=== PATIENT | male | born 1960 | race Caucasian/White ===

== ENCOUNTER 2020-10-13 13:54 | Outpatient (CLI) | payer SELFPAY ==
[2020-10-13 14:48] LABS: #Basophils 0.1 10x3/uL (0.0-0.2); #Eosinphils 0.2 10x3/uL (0.0-0.5); #Monocytes 0.5 10x3/uL (0.0-1.1); #Neutrophils 6.7 10x3/uL (1.5-8.4); %Basophils 0.7 % (0.0-2.0); %Eosinophils 2.3 % (0.0-6.0); %Lymphocytes 17.8 % (18.0-47.0); %Monocytes 5.7 % (0.0-10.0); Hemoglobin 14.3 g/dL (14.0-18.0); Mean Corpuscular HGB CONC 34.4 G/DL (32.0-36.0); Mean Corpuscular Hemoglobin 30.9 PG (27.0-33.0); Mean Corpuscular Volume 89.8 fl (80.0-100.0); Mean Platelet Volume 9.2 fl (7.4-10.4); Platelet Count 218 10x3/uL (130-400); RBC Distribution Width 12.7 % (11.5-14.5); Red Blood Cell (RBC) Count 4.63 10x6/uL (4.40-5.80); White Blood Cell (WBC) Count 9.2 10x3/uL (4.5-11.0)
[2020-10-13 15:17] LABS: Anion Gap 13 mmol/L (10-20); BUN (Urea Nitrogen) 15 mg/dL (8.4-25.7); Calc. Creatinine Clearance 0 mL/min (70-130); Carbon Dioxide 28 mmol/L (23-31); Chloride 105 mmol/L (98-107); Potassium 4.1 mmol/L (3.5-5.1); Sodium 142 mmol/L (136-145)
[2020-10-13 15:18] LABS: ALT (SGPT) 18 U/L (8-55); AST (SGOT) 24 U/L (5-34); Albumin 4.5 g/dL (3.4-4.8); Alkaline Phosphatase 84 U/L (40-110); Bilirubin, Total 1.1 mg/dL (0.2-1.2); Calcium 9.6 mg/dL (7.8-10.44); Globulin 2.6 g/dL (2.4-3.5); Glucose 93 mg/dL (80-115); Protein, Total 7.1 g/dL (5.8-8.1)
[2020-10-14 02:23] LABS: SARS-CoV-2 MS2 Positive; SARS-CoV-2 N Gene Negative; SARS-CoV-2 S Gene Negative; SARS-CoV-2 by NAA Not Detected (NotDetected); SARS-CoV-2 orf1ab Negative
== END 2020-10-13 13:55 | disposition home or self-care (01) ==
LOC: LABBT 13:54
PROVIDERS: ATTEND Internal Medicine Cardiovascular Disease
DX: Z01.812 Encounter for preprocedural laboratory examination (principal); R94.39 Abnormal result of other cardiovascular function study; Z20.822 Contact with and (suspected) exposure to COVID-19
CPT/HCPCS: 80053; 85025; 87635; U0003

== ENCOUNTER 2020-10-18 06:02 | Day surgery (SDC) | payer OTHER ==
[2020-10-14 10:40] VITALS: BMI 30.4
[2020-10-18] MEDS ORDERED: Heparin 10,000 UNITS/ 10 ML VIAL ONE (06:46)
[2020-10-18] MEDS ORDERED: Fentanyl 100 MCG/2 ML VIAL ONE (07:01)
[2020-10-18] MEDS ORDERED: Midazolam HCl 2 mg/2 ml Vial ONE (07:02)
[2020-10-18] MEDS ORDERED: Bivalirudin 250 MG VIAL ONE (07:36)
[2020-10-18] MEDS ORDERED: Clopidogrel Bisulfate 300 MG TAB ONE (07:48)
[2020-10-18] MEDS ORDERED: Adenosine 6 MG/2 ML VIAL ONE (08:05)
[2020-10-18] MEDS ORDERED: Acetaminophen 325 MG TAB ONE (08:35)
[2020-10-18] MEDS ORDERED: Aspirin Chewable 81 MG TAB ONE (14:17)
[2020-10-18] MEDS ORDERED: Aspirin 81 mg Enteric Coated Tablet ONE (14:18)
[2020-10-18] MEDS ORDERED: Carvedilol 6.25 MG TAB ONE (14:19)
[2020-10-18] MEDS ORDERED: Lisinopril 2.5 MG TAB ONE (14:19)
[2020-10-18] MEDS ORDERED: Iopamidol 370 76% 100 ML VIAL ONE (14:29)
[2020-10-18] MEDS ORDERED: Iopamidol 370 76% 50 ML VIAL FS ONE (14:29)
[2020-10-18] MEDS ORDERED: hydrALAZINE 20 MG/ML VIAL ONE (18:46)
[2020-10-18] MEDS ORDERED: Sodium Chloride 0.9% 10 ML ONE (18:46)
== END 2020-10-18 19:04 | disposition home or self-care (01) ==
LOC: CCL 06:02
PROVIDERS: ATTEND Internal Medicine Cardiovascular Disease
PROC: B2111ZZ Fluoroscopy of Multiple Coronary Arteries using Low Osmolar Contrast (ICD-10-PCS; principal; 2020-10-18)
PROC: 4A023N7 Measurement of Cardiac Sampling and Pressure, Left Heart, Percutaneous Approach (ICD-10-PCS; principal; 2020-10-18)
DX: I25.10 Atherosclerotic heart disease of native coronary artery without angina pectoris (principal); E78.00 Pure hypercholesterolemia, unspecified; I10 Essential (primary) hypertension; K21.9 Gastro-esophageal reflux disease without esophagitis; I25.2 Old myocardial infarction; I25.5 Ischemic cardiomyopathy; F17.290 Nicotine dependence, other tobacco product, uncomplicated; Z79.82 Long term (current) use of aspirin; Z79.899 Other long term (current) drug therapy; Z95.1 Presence of aortocoronary bypass graft
CPT/HCPCS: 85347; 92928; 93005; 93010; 93459; 99152; 99153; C1876; J0153; J0360; J0583; J1644; J2250; J3010; Q9967